=== PATIENT | male | born 1965 | race Caucasian/White ===

== ENCOUNTER 2019-01-26 23:44 | Inpatient (IN) | payer BC ==
[~2019-01-26] VITALS: Ht 172.7 cm; Wt 108.0 kg
[2019-01-26 23:44] VITALS: BP_SYST 153
[~2019-01-26 23:44] MED LIST: [UNRECOGNIZED DRUG - REMARK]
[2019-01-27] MEDS ORDERED: ONDANSETRON HCL 4 MG/2 ML VIAL IVP ONE (00:45)
[2019-01-27] MEDS ORDERED: MORPHINE 4 MG/ML INJ. SYRINGE IVP ONE (00:45)
[2019-01-27] MEDS ORDERED: methylPREDNISolone SOD SUCC/PF 62.5 MG/ML VIAL IVP ONE (00:45)
[2019-01-27 01:04] LABS: BASOPHILS # (AUTO) 0.1 K/uL (0.0-0.2); BASOPHILS % (AUTO) 0.4 % (0.0-2.0); EOSINOPHILS # (AUTO) 0.1 K/uL (0.0-0.4); HEMATOCRIT 43.6 % (36-54); HEMOGLOBIN 14.5 g/dL (14.0-18.0); LYMPHOCYTES % (AUTO) 23.2 % (20.5-51.5); MEAN CORPUSCULAR HEMOGLOBIN 28 pg (27-31); MEAN CORPUSCULAR HGB CONC 33 % (32-36); MEAN CORPUSCULAR VOLUME 85 fL (79.0-98.0); MONOCYTES # (AUTO) 1.1 K/uL (0.0-1.0); MONOCYTES % (AUTO) 8.5 % (1.7-9.3); NEUTROPHILS # (AUTO) 8.8 K/uL (1.8-7.7); NEUTROPHILS % (AUTO) 66.9 % (40.0-70.0); PLATELET COUNT (AUTO) 475 K/uL (130-430); RED BLOOD CELL COUNT(AUTO) 5.14 MIL/uL (4.2-6.2); RED CELL DISTRIBUTION WIDTH 13.4 % (9.0-15.0); WHITE BLOOD COUNT (AUTO) 13.1 K/uL (4.8-10.8)
[2019-01-27 01:13] LABS: CALCIUM 10.2 mg/dL (8.4-11.0); CREATININE 1.33 mg/dL (0.55-1.30)
[2019-01-27 01:18] LABS: INR 1.1 (0.80-1.20); PROTHROMBIN TIME 10.6 SECS (9.5-12.5)
[2019-01-27 01:19] LABS: ALBUMIN 3.4 g/dL (3.4-4.8); TOTAL BILIRUBIN 0.5 mg/dL (0.0-1.0)
[2019-01-27] MEDS ORDERED: LIDOCAINE/EPI 1% 1:100000 20 ML VIAL INJ ONE (02:00)
[2019-01-27] MEDS ORDERED: fentaNYL CITRATE/PF 100 MCG/2 ML AMP IVP ONE (02:15)
[2019-01-27 04:13] LABS: SOURCE/TYPE ,BODY FLUID SYNOVIAL
[2019-01-27 04:14] LABS: BF APPEARANCE UNSPUN SLIGHTLY CLOUDY (CLEAR); BODY FLUID COLOR YELLOW (LT YELLOW); BODY FLUID SOURCE/ TYPE SYNOVIAL; BODY FLUID TOTAL VOLUME 12 mL; RBC, BODY FLUID 5865 /uL; WBC, BODY FLUID 253 /uL
[2019-01-27] MEDS ORDERED: cefTRIAXone 1 GM VIAL IM ONE (04:15)
[2019-01-27] MEDS ORDERED: VANCOMYCIN HCL 1,000 MG in NS 250 ML IV ONE (04:15)
[2019-01-27] MEDS ORDERED: cefTRIAXone 1 GM IVPB PREMIX 50 ML IV ONE (04:30)
[2019-01-27] MEDS ORDERED: FURO-150 PO (04:31)
[2019-01-27] MEDS ORDERED: POTA8TAB4 PO (04:31)
[2019-01-27] MEDS ORDERED: METO25TA3 PO (04:31)
[2019-01-27] MEDS ORDERED: DILT30TA36 PO (04:31)
[2019-01-27 04:36] LABS: EOSINOPHIL, BODY FLUID 0 %; LYMPHOCYTES, BODY FLUID 13 %; MONOCYTES,BODY FLUID 28 %; NEUTROPHIL, BODY FLUID 59 %
[2019-01-27] MEDS ORDERED: VANCOMYCIN HCL 1000 MG/VIAL IV ONE (04:42)
[2019-01-27 06:01] LABS: BODY FLUID CRYSTALS NO CRYSTALS SEEN (None Seen)
[2019-01-27] MEDS ORDERED: MORPHINE 2 MG/ML INJ. SYRINGE IVP ONE (06:15)
[2019-01-27] MEDS ORDERED: NACL 0.9% 1,000 ML IV ONE (06:45)
[2019-01-27 07:55] VITALS: BP_SYST 142
[2019-01-27 08:00] VITALS: BP_SYST 142
[2019-01-27] MEDS ORDERED: MORPHINE 2 MG/ML INJ. SYRINGE IVP PRN (09:00)
[2019-01-27] MEDS ORDERED: METOCLOPRAMIDE HCL 10 MG/2 ML VIAL IVP PRN (09:00)
[2019-01-27] MEDS ORDERED: MORPHINE 4 MG/ML INJ. SYRINGE IVP PRN (09:00)
[2019-01-27] MEDS ORDERED: ONDANSETRON HCL 4 MG/2 ML VIAL IVP PRN (09:00)
[2019-01-27] MEDS ORDERED: ACETAMINOPHEN 325 MG TABLET PO PRN (09:00)
[2019-01-27] MEDS: PIPERACILLIN/TAZO 3.375/DEX-IS 50 ML IV SCH ×4 (10:46→23:51)
[2019-01-27 11:26] VITALS: BP_SYST 138
[2019-01-27] MEDS ORDERED: LISI40TA4 PO (12:31)
[2019-01-27 13:43] LABS: BODY FLUID GLUCOSE 231 mg/dL
[2019-01-27 13:44] LABS: BODY FLUID TOTAL PROTEIN 5.1 g/dL
[2019-01-27 15:29] VITALS: BP_SYST 149
[2019-01-27] MEDS: NAPROXEN 250 MG TABLET PO SCH (20:29)
[2019-01-28 00:51] VITALS: BP_SYST 148
[2019-01-28] MEDS: PIPERACILLIN/TAZO 3.375/DEX-IS 50 ML IV SCH ×3 (05:32→16:59)
[2019-01-28 07:56] VITALS: BP_SYST 146
[2019-01-28] MEDS: NAPROXEN 250 MG TABLET PO SCH (08:44)
[2019-01-28 11:18] VITALS: BP_SYST 151
[2019-01-28 14:15] VITALS: BP_SYST 137
[2019-01-28 15:23] VITALS: BP_SYST 144
== END 2019-01-28 18:20 | disposition home or self-care (01) | DRG 554 ==
LOC: SED 23:44 → SMU 01-27 06:19
PROVIDERS: ADMIT Internal Medicine Hospice and Palliative Medicine; ATTEND Internal Medicine Hospice and Palliative Medicine
DX: M13.861 Other specified arthritis, right knee (principal); I48.92 Unspecified atrial flutter; I11.0 Hypertensive heart disease with heart failure; I48.91 Unspecified atrial fibrillation; M25.461 Effusion, right knee; I50.9 Heart failure, unspecified; Z99.3 Dependence on wheelchair
CPT/HCPCS: 36415; 73564; 73590-TC; 80053; 82550-TC; 82947-TC; 83605; 84157-TC; 84550-TC; 85025; 85610-TC; 85651-TC; 85730-TC; 87040-TC; 87070-TC; 89051-TC; 89060-TC; 93971; 96365; 96368; 96375; 97110-GP; 97116-GP; 99285; J0696; J2270; J2405; J2543; J2930; J3010; J3370